=== PATIENT | male | born 2000 | race Caucasian/White ===

== ENCOUNTER 2018-11-18 09:41 | Emergency (ER) | payer OTHER, SELFPAY ==
[2018-11-18 10:07] VITALS: BP 145/83; PULSE 74; RESP 13; TEMP 36.2; O2SAT 99
[2018-11-18] MEDS: LIDO 1%/SOD BICARB 8.4% (10ML) 10 ML SYRINGE INJ (10:30)
[2018-11-18] MEDS: TET,DIPH,PERTUSS(ACELL),VAC/PF 0.5 ML SYRINGE IM (10:30)
--- NOTE | 2018-11-18 10:43 | ED.WOUNDLAC ---
HPI - Wound/Laceration General Chief Complaint: Wound/Laceration Stated Complaint: cut hand Time Seen by Provider: 11/18/18 09:57 Source: patient Mode of arrival: Ambulatory Limitations: no limitations History of Present Illness HPI narrative: 18-year-old male former smoker with benign medical history presents with a chief complaint of a laceration in the webspace between thumb and index finger on his right hand suffered just prior to arrival while working at a local [place] project. He was using a rather old and juaquin hook blade. His tetanus is not up-to-date. He has full range of motion and sensation. He applied pressure immediately and presented to us. He denies other injury Onset (ago): minute(s) Extremity Location: Right: hand Place: work Patient tetanus UTD: No Context: accidental Associated symptoms: pain Treatments prior to arrival: bandage Related Data Previous Rx's Medication Instructions Recorded cephalexin [Keflex] 500 mg PO QID #28 cap 11/18/18 Allergies Allergy/AdvReac Type Severity Reaction Status Date / Time No Known Drug Allergies Allergy Verified 11/18/18 10:29 Review of Systems Constitutional Constitutional: Denies chills, Denies fatigue, Denies fever(s), Denies frequent falls, Denies lethargy and Denies weakness Eyes Eyes: Denies change in vision, Denies eye discharge, Denies irritation and Denies loss of vision ENT Ears, Nose, Mouth, and Throat: Denies change in voice, Denies dizziness, Denies neck pain, Denies sore throat and Denies throat swelling Cardiovascular Cardiovascular: Denies chest pain, Denies irregular heart rhythm, Denies lightheadedness, Denies palpitations, Denies dyspnea, Denies dyspnea on exertion and Denies orthopnea Respiratory Respiratory: Denies cough, Denies dyspnea, Denies dyspnea on exertion and Denies wheezing Gastrointestinal Gastrointestinal: Denies abdominal pain, Denies change in bowel habits, Denies diarrhea, Denies nausea and Denies vomiting Genitourinary Genitourinary: Denies hematuria, Denies flank pain, Denies urinary incontinence and Denies urinary urgency Musculoskeletal Musculoskeletal: Denies back pain, Denies muscle weakness, Denies neck pain, Denies numbness and Denies tingling Integumentary/Breasts Skin/Breast: Denies pruritus, Denies erythema, Denies rash and Reports wounds Neurologic Neurologic: Denies behavioral changes, Denies confusion, Denies dizziness, Denies frequent falls, Denies loss of vision, Denies numbness, Denies tingling and Denies weakness Psychiatric Psychiatric: Denies anxiety, Denies behavioral changes, Denies confusion, Denies depression, Denies homicidal ideation and Denies suicidal ideation Endocrine Endocrine: Denies fatigue, Denies flushing and Denies palpitations Hematologic/Lymphatic Hematologic/Lymphatic: Denies easy bruising Allergic/Immunologic Allergic/Immunologic: Denies urticaria, Denies throat swelling and Denies wheezing [facility] Medical History (Updated 11/18/18 @ 10:45 by Kyle Roberts DO) Patient denies medical problems (Acute) Social History (Updated 11/18/18 @ 10:45 by Kyle Roberts DO) Smoking Status: Former smoker alcohol intake: current Social History (Updated 11/18/18 @ 10:45 by Kyle Roberts DO) Smoking Status: Former smoker alcohol intake: current Exam Narrative Exam Narrative: GEN: AOx3 and in mild distress EYES: Pupils are equal, round, and reactive to light and accommodation. Extraoccular muscles are intact bilaterally. There is no subconjunctival hemorrhage or exudate. CHEST: Lungs are clear to auscultation bilaterally and free of wheezes, rales, or rhonchi. Heart rate is regular rhythm, there are no murmurs, clicks, rubs, or gallops. There is no chest wall tenderness. ABD: Abdomen is soft and nontender. There is no guarding or rebound. Bowel sounds are normal in all 4 quadrants. There is no mass or organomegaly. EXT: Full painless ROM of all extremities with no loss of sensation or strength. SKIN: 3 cm deep laceration in the webspace between thumb and index finger right hand. Viewed in a bloodless field and no foreign body or tendon involvement noted. Full strength, sensation and range of motion. Warm, pink, and dry. No erythema or rash Initial Vital Signs Initial Vital Signs: Vital Signs Temperature 97.2 F L 11/18/18 10:07 Pulse Rate 74 11/18/18 10:07 Respiratory Rate 13 11/18/18 10:07 Blood Pressure 145/83 H 11/18/18 10:07 Pulse Oximetry 99 11/18/18 10:07 Procedures Laceration Repair Laceration 1: Site: hand Side (If applicable): right Size (cm): 3 Description: linear Depth: simple, single layer Local Anesthetic: lidocaine 1% and with bicarb Amount of anesthesia used (mL): 4 Pre-repair: wound explored, irrigated extensively and deep structures intact Skin layer closed with: nylon Size (cm): 4-0 Number of sutures: 6 Technique: simple, interrupted Course Orders Ordered: Discontinued Medications Diphtheria/Tetanus/Acell Pertussis (Adacel) 0.5 ml IM .ONCE ONE Stop: 11/18/18 10:07 Last Admin: 11/18/18 10:30 Dose: 0.5 ml Documented by: AZIZA Lidocaine/Sodium Bicarbonate (Buffered Lidocaine 10 Ml Syr) 10 ml INJ NOW ONE Stop: 11/18/18 10:08 Last Admin: 11/18/18 10:30 Dose: 10 ml Documented by: AZIZA Vital Signs Vital signs: Vital Signs - 8 hr 11/18/18 10:07 Temperature 97.2 F L Pulse Rate 74 Respiratory Rate 13 Blood Pressure 145/83 H Pulse Oximetry 99 Discharge Plan Departure Patient Disposition: Home Clinical Impression: Laceration of right hand Qualifiers: Encounter type: initial encounter Foreign body presence: without foreign body Qualified Code(s): S61.411A - Laceration without foreign body of right hand, initial encounter Instructions: DI for Laceration Repair Activity Restrictions/Additional Instructions: Please keep the wound clean and dry to the best of your ability. Please monitor for signs of infection such as redness to the skin or increasing pain. Have the sutures removed by your doctor in about 7 days. If you are unable to get into your doctor, we would be happy to remove the sutures in that same timeframe. Prescriptions: New cephalexin [Keflex] 500 mg capsule 500 mg PO QID Qty: 28 RF: 0
--- NOTE | 2018-11-18 10:50 | PC.NURSE ---
no furthur bleeding, distal cms intact.
== END 2018-11-18 10:50 | disposition home or self-care (01) ==
PROVIDERS: Emergency Provider Emergency Medicine
DX: S61.411A Laceration without foreign body of right hand, initial encounter (principal); Z23 Encounter for immunization
CPT/HCPCS: 12002; 90471; 99283; 90715